=== PATIENT | female | born 1990 | race Caucasian/White ===

== ENCOUNTER → 2018-07-26 | Emergency (ER) | payer OTHER ==
[~2018-07-26] VITALS: Ht 162.6 cm; Wt 63.5 kg
[~2018-07-26] MED LIST: BENADRYL25 MG PO; DUI500 PO; ELOCON45 G1 TOP; MEDROL4 MG PO
== END | disposition home or self-care (01) ==
LOC: ER 22:23 → EDBD 22:27
DX: S70.371A Other superficial bite of right thigh, initial encounter (principal); W57.XXXA Bitten or stung by nonvenomous insect and other nonvenomous arthropods, initial encounter; Y93.89 Activity, other specified; Y92.89 Other specified places as the place of occurrence of the external cause; Y99.8 Other external cause status

== ENCOUNTER → 2019-02-23 | Outpatient (CLI) | payer OTHER | END | disposition home or self-care (01) | LOC: RX STUDY 10:15 | DX: R10.84 Generalized abdominal pain (principal); N80.8 Other endometriosis ==

== ENCOUNTER 2020-05-11 13:40 | Emergency (ER) | payer OTHER ==
[~2020-05-11] VITALS: Ht 162.6 cm; Wt 68.0 kg
[2020-05-11] MEDS ORDERED: NABUMETONE500 MG (13:58)
[2020-05-11] MEDS ORDERED: ROBAXIN-750750 MG (13:59)
[2020-05-11] MEDS ORDERED: ALLZITAL 25-321 EACH (14:04)
[2020-05-11] MEDS ORDERED: MAXALT10 MG PO (15:19)
[2020-05-11] MEDS ORDERED: KETO10TA2 PO (15:19)
== END 2020-05-11 15:45 | disposition home or self-care (01) ==
LOC: ER 13:40
DX: G43.809 Other migraine, not intractable, without status migrainosus (principal)

== ENCOUNTER 2020-12-21 12:45 | Emergency (ER) | payer OTHER ==
[~2020-12-21] VITALS: Ht 162.6 cm; Wt 68.9 kg
[~2020-12-21 12:45] MED LIST changes: +ALLZITAL 25-321 EACH; +KETO10TA2 PO; +MAXALT10 MG PO; +NABUMETONE500 MG; +ROBAXIN-750750 MG
[2020-12-21] MEDS ORDERED: DICLOFENAC POTA50 MG PO (15:17)
[2020-12-21] MEDS ORDERED: HORIZANT300 MG PO (15:17)
[2020-12-21] MEDS ORDERED: SKELAXIN800 MG PO (15:17)
== END 2020-12-21 15:31 | disposition designated cancer center or children's hospital (05) ==
LOC: ER 12:45
DX: M54.12 Radiculopathy, cervical region (principal); M62.838 Other muscle spasm